=== PATIENT | female | born 2000 | race Caucasian/White ===

== ENCOUNTER 2021-10-31 16:34 | Emergency (ER) | payer MEDICAID ==
[~2021-10-31] VITALS: Ht 172.7 cm; Wt 150.0 kg
[2021-10-31 16:43] VITALS: BP 197/118
[2021-10-31] MEDS ORDERED: TETanus/Pertussis (Acell)/Diphther VAC/PF (Tdap-Adult) 0.5ml syringe IMVAC ONE (16:50)
[2021-10-31] MEDS ORDERED: LIDOcaine 1% W/epiNEPHrine 1:200,000 10ml vial IJ ONE (16:50)
[2021-10-31] MEDS ORDERED: DOXYCYCLINE 100MG CAPSULE PO STA (17:54)
[2021-10-31] MEDS ORDERED: ibuprofen tablet 400 MG TABLET PO ONE (17:55)
[2021-10-31] MEDS ORDERED: IBUP-1986 PO (17:57)
[2021-10-31] MEDS ORDERED: SULF1TAB49 PO (17:59)
[2021-10-31] MEDS ORDERED: sulfamethoxazole/trimethoprim DS (800/160mg) tablet PO ONE (18:00)
--- NOTE | 2021-10-31 18:24 | NUR ---
dressing applied to i&d site po meds x2 given im given
== END 2021-10-31 18:31 | disposition home or self-care (01) ==
LOC: ER 16:35
DX: L02.412 Cutaneous abscess of left axilla (principal); Z86.2 Personal history of diseases of the blood and blood-forming organs and certain disorders involving the immune mechanism; Z20.3 Contact with and (suspected) exposure to rabies; Z56.0 Unemployment, unspecified; Z79.2 Long term (current) use of antibiotics; Z79.899 Other long term (current) drug therapy
CPT/HCPCS: 10060; 90471; 90715; 99283; J3490

== ENCOUNTER 2021-11-01 12:09 | Emergency (ER) | payer MEDICAID ==
[~2021-11-01] VITALS: Ht 172.7 cm; Wt 150.0 kg
[~2021-11-01 12:09] MED LIST: IBUP-1986 PO; SULF1TAB49 PO
[2021-11-01 12:20] VITALS: BP 173/111
== END 2021-11-01 14:45 | disposition home or self-care (01) ==
LOC: ER 12:10
DX: L02.411 Cutaneous abscess of right axilla (principal); R11.2 Nausea with vomiting, unspecified; D64.9 Anemia, unspecified; Z79.899 Other long term (current) drug therapy
CPT/HCPCS: 99282

== ENCOUNTER 2023-01-29 23:33 | Emergency (ER) | payer MEDICAID ==
[~2023-01-29] VITALS: Ht 172.7 cm; Wt 154.6 kg
[~2023-01-29 23:33] MED LIST changes: -SULF1TAB49 PO
[2023-01-30] VITALS: BP 195/128; PULSE 84; TEMP 98.3; O2SAT 99
[2023-01-30] MEDS ORDERED: ketorolac tromethamine 15mg/ml inj. IM ONE (00:40)
[2023-01-30 00:48] VITALS: RESP 18
[2023-01-30 01:06] LABS: STREP A SCREEN NEGATIVE (Neg)
== END 2023-01-30 01:58 | disposition home or self-care (01) ==
LOC: ER 23:34
DX: J02.9 Acute pharyngitis, unspecified (principal); Z20.822 Contact with and (suspected) exposure to COVID-19; Z59.00 Homelessness unspecified
CPT/HCPCS: 36415; 87081; 87811; 87880; 96372; 99283; J1885